=== PATIENT | female | born 1965 | race African-American/Black ===

== ENCOUNTER 2019-01-12 09:56 | Emergency (ER) | payer MEDICAID ==
[~2019-01-12] VITALS: Ht 152.4 cm; Wt 88.0 kg
[2019-01-12] MEDS ORDERED: cloNIDine HCL 0.1 MG TAB PO ONE (10:15)
[2019-01-12 11:40] VITALS: BP 199/133
== END 2019-01-12 12:11 | disposition left against medical advice (07) ==
LOC: ER 09:56
DX: M25.562 Pain in left knee (principal); M25.561 Pain in right knee; I10 Essential (primary) hypertension; Z53.21 Procedure and treatment not carried out due to patient leaving prior to being seen by health care provider
CPT/HCPCS: 93005

== ENCOUNTER → 2020-06-25 | Emergency (ER) | payer MEDICAID ==
[~2020-06-25] VITALS: Ht 152.4 cm; Wt 71.7 kg
[~2020-06-25] MED LIST: HYDROcodone-ACET 5/325MG TAB PO ONE; cloNIDine HCL 0.1 MG TAB PO ONE
[2020-06-25 23:00] VITALS: BP 170/94
== END | disposition home or self-care (01) ==
LOC: ER 19:35
DX: M25.562 Pain in left knee (principal); M25.561 Pain in right knee; J44.9 Chronic obstructive pulmonary disease, unspecified; F17.210 Nicotine dependence, cigarettes, uncomplicated; F12.10 Cannabis abuse, uncomplicated; Z20.822 Contact with and (suspected) exposure to COVID-19; Z88.0 Allergy status to penicillin; Z88.1 Allergy status to other antibiotic agents; Z76.0 Encounter for issue of repeat prescription
CPT/HCPCS: 36415; 87426

== ENCOUNTER 2020-06-26 04:17 | Emergency (ER) | payer MEDICAID ==
[~2020-06-26] VITALS: Ht 152.4 cm; Wt 71.7 kg
[2020-06-26 06:00] VITALS: BP 179/102
== END 2020-06-26 08:59 | disposition home or self-care (01) ==
LOC: EDBD 04:17 → ER 04:17
DX: I10 Essential (primary) hypertension (principal); J44.9 Chronic obstructive pulmonary disease, unspecified; F17.210 Nicotine dependence, cigarettes, uncomplicated; F12.10 Cannabis abuse, uncomplicated; Z88.0 Allergy status to penicillin; Z88.6 Allergy status to analgesic agent; Z59.0 Homelessness
CPT/HCPCS: 93005

== ENCOUNTER 2020-07-10 21:58 | Inpatient (IN) | payer MEDICAID ==
[~2020-07-10] VITALS: Ht 165.1 cm; Wt 74.8 kg
[2020-07-10 23:28] LABS: Mean Corpuscular Volume 74.7 fL (80.0-100.0); White Blood Cell 9.9 10^3/uL (4.4-10.8)
[2020-07-10 23:30] LABS: Hematocrit 25.6 % (36.0-46.0); Hemoglobin 8.2 g/dL (12.2-16.2); Mean Corpuscular Hemoglobin 23.8 pg (28.0-32.0); Mean Corpuscular Hgb Conc. 31.9 g/dL (32.0-36.0); Platelet Count (auto) 224 10^3/uL (140-450); Red Blood Cells 3.43 10^6/uL (4.0-5.20); Red Cell Distribution Width 16.6 % (11.8-14.3)
[2020-07-10 23:36] LABS: Albumin 2.9 g/dL (3.4-5.0); Anion Gap 10 (5-15); Blood Urea Nitrogen 53 mg/dL (7-18); Calcium 8.6 mg/dL (8.5-10.1); Carbon Dioxide 19 mmol/L (21-32); Chloride 110 mmol/L (98-107); Glucose 78 mg/dL (74-106); Magnesium 2.4 mg/dL (1.6-2.6); Potassium 3.9 mmol/L (3.5-5.1); Sodium 139 mmol/L (136-145)
[2020-07-10 23:39] LABS: INR 0.97 (0.9-1.15); Partial Thromboplastin Time 28.5 sec (23.0-31.2)
[2020-07-10 23:41] LABS: Alanine Aminotransferase 16 U/L (13-56); Alkaline Phosphatase 107 U/L (45-117); Aspartate Aminotransferase 20 U/L (15-37); BUN/Creatinine Ratio 21.7; Bilirubin, Total 0.2 mg/dL (0.2-1.0); GFR African American 27 mL/min; GFR Non-African American 22 mL/min; Total Protein 7.2 g/dL (6.4-8.2)
[2020-07-11] MEDS ORDERED: FUROSEMIDE 40 MG/4 ML VIAL IV ONE (01:00)
[2020-07-11 01:05] LABS: Band Neutrophils % (manual) 2; Basophils % (manual) 0 (0.0-2.0); Blast Cells 0; Eosinophils % (manual) 1 (0-7); Lymphocytes % (manual) 23 (10.0-50.0); Metamyelocytes % 0; Monocytes % (manual) 5 (0-12); Myelocytes % 0; Promyelocytes % 0; Reactive Lymphocytes 0
[2020-07-11] MEDS ORDERED: MORPHINE SULF INJ 2 MG/ML SYRINGE 1ML IV PRN (01:15)
[2020-07-11] MEDS ORDERED: ONDANSETRON HCL 4 MG/2 ML VIAL IV PRN (01:15)
[2020-07-11] MEDS ORDERED: ACETAMINOPHEN 325 MG TAB PO PRN (01:15)
[2020-07-11] MEDS ORDERED: NITROGLYCERIN 0.4 MG SL TAB SL PRN (01:15)
[2020-07-11] MEDS ORDERED: cloNIDine HCL 0.1 MG TAB PO PRN (01:15)
[2020-07-11 05:00] VITALS: BP 166/111
[2020-07-11] MEDS ORDERED: FUROSEMIDE 20 MG/2 ML VIAL IV SCH (06:00)
[2020-07-11] MEDS ORDERED: FERR325T20 PO (06:28)
[2020-07-11] MEDS ORDERED: AMLO-489 PO (06:28)
[2020-07-11] MEDS ORDERED: GABA400C11 PO (06:28)
[2020-07-11] MEDS ORDERED: ARIP10TA29 PO (06:28)
[2020-07-11] MEDS ORDERED: ARIP5TAB36 PO (06:28)
[2020-07-11] MEDS ORDERED: MAGN400T6 PO (06:28)
[2020-07-11] MEDS ORDERED: CLON0.2T PO (06:28)
[2020-07-11] MEDS ORDERED: DOCU1CAP31 PO (06:28)
[2020-07-11] MEDS ORDERED: ASPI-325 PO (06:28)
[2020-07-11 08:15] VITALS: BP 173/103
[2020-07-11 08:54] VITALS: BP 173/103
[2020-07-11] MEDS ORDERED: CARVEDILOL 3.125 MG TAB PO SCH (10:00)
[2020-07-11] MEDS ORDERED: ASPirin 81 mg TAB PO SCH (10:00)
[2020-07-11] MEDS ORDERED: amLODIPine BESYLATE 5 MG TAB PO SCH (10:00)
[2020-07-11] MEDS ORDERED: EPOETIN ALFA-EPBX 10,000 UNIT/1ML VIAL SC ONE (16:00)
[2020-07-11] MEDS ORDERED: ATORVASTATIN 20 MG TAB PO SCH (22:00)
== END 2020-07-11 09:35 | disposition left against medical advice (07) | DRG 194 ==
LOC: ER 21:58 → EDBD 21:58 → TELE 07-11 01:14 → TELE-CENTR 07-11 04:10
PROVIDERS: ADMIT Nurse Practitioner; ATTEND Nurse Practitioner
DX: I13.0 Hypertensive heart and chronic kidney disease with heart failure and stage 1 through stage 4 chronic kidney disease, or unspecified chronic kidney disease (principal); E44.0 Moderate protein-calorie malnutrition; N18.4 Chronic kidney disease, stage 4 (severe); R06.03 Acute respiratory distress; I50.43 Acute on chronic combined systolic (congestive) and diastolic (congestive) heart failure; F12.90 Cannabis use, unspecified, uncomplicated; F17.210 Nicotine dependence, cigarettes, uncomplicated; G89.29 Other chronic pain; I16.0 Hypertensive urgency; I25.10 Atherosclerotic heart disease of native coronary artery without angina pectoris; Z53.29 Procedure and treatment not carried out because of patient's decision for other reasons; J44.9 Chronic obstructive pulmonary disease, unspecified; M19.90 Unspecified osteoarthritis, unspecified site; D63.8 Anemia in other chronic diseases classified elsewhere; F32.9 Major depressive disorder, single episode, unspecified; M54.2 Cervicalgia; Z20.822 Contact with and (suspected) exposure to COVID-19; Z88.8 Allergy status to other drugs, medicaments and biological substances; Z88.5 Allergy status to narcotic agent; Z88.0 Allergy status to penicillin; Z91.012 Allergy to eggs; Z68.27 Body mass index [BMI] 27.0-27.9, adult
CPT/HCPCS: 36415; 71045; 72125; 80053; 83735; 83880; 84484; 85007; 85025; 85027; 85379; 85610; 85730; 87426; 93005; 93970; 96374; G0378

== ENCOUNTER 2020-11-25 18:45 | Emergency (ER) | payer MEDICAID ==
[~2020-11-25] VITALS: Ht 152.4 cm; Wt 80.7 kg
[~2020-11-25 18:45] MED LIST changes: +AMLO-489 PO; +ARIP10TA29 PO; +ARIP5TAB36 PO; +ASPI-325 PO; +CLON0.2T PO; +DOCU1CAP31 PO; +FERR325T20 PO; +GABA400C11 PO; -HYDROcodone-ACET 5/325MG TAB PO ONE; +MAGN400T6 PO; -cloNIDine HCL 0.1 MG TAB PO ONE
[2020-11-25] MEDS ORDERED: NIFEdipine 10 MG CAP PO ONE (19:45)
[2020-11-25] MEDS ORDERED: cloNIDine HCL 0.1 MG TAB PO ONE (22:00)
[2020-11-25 22:37] LABS: Basophils # (auto) 0.1 10 ^3/uL (0-0.2); Basophils % (auto) 1.2 % (0.0-2.0); Eosinophils # (auto) 0.1 10 ^3/uL (0-0.8); Eosinophils % (auto) 0.8 % (0.0-7.0); Hemoglobin 9.3 g/dL (12.2-16.2); Lymphocytes # (auto) 1.5 10 ^3/uL (0.4-5.4); Lymphocytes % (auto) 14.4 % (10.0-50.0); Mean Corpuscular Hemoglobin 22.2 pg (28.0-32.0); Mean Corpuscular Hgb Conc. 30.9 g/dL (32.0-36.0); Monocytes # (auto) 0.3 10 ^3/uL (0-1.3); Monocytes % (auto) 2.5 % (0.0-12.0); Neutrophils # (auto) 8.3 10 ^3/uL (1.6-8.6); Neutrophils % (auto) 81.1 % (37.0-80.0); Nucleated Red Blood Cells % 0.1 %; Red Blood Cells 4.17 10^6/uL (4.0-5.20); Red Cell Distribution Width 15.2 % (11.8-14.3); White Blood Cell 10.2 10^3/uL (4.4-10.8)
[2020-11-25 22:48] LABS: Anion Gap 8 (5-15); Blood Urea Nitrogen 34 mg/dL (7-18); Calcium 9.8 mg/dL (8.5-10.1); Carbon Dioxide 24 mmol/L (21-32); Chloride 107 mmol/L (98-107); Glucose 90 mg/dL (74-106); Potassium 3.8 mmol/L (3.5-5.1); Sodium 139 mmol/L (136-145)
[2020-11-25 22:54] LABS: Alanine Aminotransferase 57 U/L (13-56); Alkaline Phosphatase 141 U/L (45-117); Aspartate Aminotransferase 48 U/L (15-37); BUN/Creatinine Ratio 15.1; Bilirubin, Total 0.2 mg/dL (0.2-1.0); GFR African American 29 mL/min; GFR Non-African American 24 mL/min; Total Protein 8.3 g/dL (6.4-8.2)
[2020-11-26] MEDS ORDERED: cloNIDine HCL 0.1 MG TAB PO ONE (01:00)
[2020-11-26] MEDS ORDERED: amLODIPine BESYLATE 5 MG TAB PO ONE (04:00)
[2020-11-26 05:00] VITALS: BP 181/105
== END 2020-11-26 08:00 | disposition left against medical advice (07) ==
LOC: ER 18:48
DX: I10 Essential (primary) hypertension (principal); J44.9 Chronic obstructive pulmonary disease, unspecified; I11.0 Hypertensive heart disease with heart failure; I50.9 Heart failure, unspecified; F17.210 Nicotine dependence, cigarettes, uncomplicated; F12.10 Cannabis abuse, uncomplicated; Z88.0 Allergy status to penicillin; Z88.8 Allergy status to other drugs, medicaments and biological substances
CPT/HCPCS: 36415; 80053; 84484; 85025